=== PATIENT | female | born 1960 | race Caucasian/White ===

== ENCOUNTER 2020-06-23 08:19 | Outpatient (CLI) | payer MEDICARE, SELFPAY ==
--- NOTE | ~2020-06-23 | MM_ITS ---
EXAMINATION: MM screening hawa BI w josé antonio HISTORY: Screening mammogram, family history of breast cancer in her mother. TECHNIQUE: Craniocaudal and mediolateral oblique 3-D tomosynthesis images were obtained and synthetic 2-D images were generated. CAD analysis was submitted and interpreted. COMPARISON: 03/16/2019 BREAST PARENCHYMAL COMPOSITION: The breasts are almost entirely fatty. FINDINGS: Scattered benign-appearing calcifications are present. There is no evidence of suspicious m ass, calcification, or architectural distortion to suggest malignancy in either breast. There has bee n no suspicious interval change. IMPRESSION: 1. No mammographic evidence of malignancy. 2. Recommend routine screening mammography in one year. BI-RADS Category 2: Benign finding(s). Reviewed, dictated and finalized at location A.
== END 2020-06-23 08:20 | disposition home or self-care (01) ==
PROVIDERS: PCP Family Medicine; Visit Provider Family Medicine
DX: Z12.31 Encounter for screening mammogram for malignant neoplasm of breast (principal)
CPT/HCPCS: 77063; 77067

== ENCOUNTER 2020-12-22 07:13 | Outpatient (CLI) | payer MEDICARE, SELFPAY ==
[2020-12-22 07:25] LABS: Basophils Absolute Auto 0.08 K/mm3 (0.00-0.10); Basophils Percent Auto 0.9 % (0.0-1.0); Eosinophils Absolute Auto 0.28 K/mm3 (0.02-0.50); Hematocrit 42.5 % (35.0-49.0); Hemoglobin 14.4 g/dL (12.0-15.0); Immature Granulocyte Absolute 0.07 K/mm3 (0.00-0.00); Immature Granulocyte Percent A 0.8 % (0.0-0.0); Lymphocytes Absolute Auto 2.66 K/mm3 (1.10-4.50); Lymphocytes Percent Auto 28.5 % (18.0-42.0); Mean Corpuscular HGB Conc 33.9 g/dL (32.0-36.0); Mean Corpuscular Hemoglobin 31.6 pg (27.0-31.0); Mean Corpuscular Volume 93.2 fL (78.0-102.0); Mean Platelet Volume 8.9 fl (9.2-11.8); Monocytes Absolute Auto 0.65 K/mm3 (0.10-0.90); Neutrophils Absolute Auto 5.6 K/mm3 (1.7-7.2); Neutrophils Percent Auto 59.8 % (50.0-70.0); Platelet Count Result 198 K/mm3 (150-420); Red Blood Count 4.56 M/mm3 (4.20-5.40); Red Cell Distribution Width 12.2 % (11.6-14.4); White Blood Count 9.3 K/mm3 (4.8-10.8)
[2020-12-22 08:06] LABS: Anion Gap 9 mmol/L (8-16); Blood Urea Nitrogen 17 mg/dL (7-18); Calcium 9.2 mg/dL (8.5-10.1); Carbon Dioxide 30 mmol/L (21-32); Chloride 106 mmol/L (98-108); Cholesterol 211 mg/dL (0-200); Estimated Glomerular Filt Rate > 60; Glucose 96 mg/dL (70-99); HDL Direct 56 mg/dL (40-60); LDL Cholesterol Calculated 133 mg/dL (<130); Osmolality Calculated 301 mOsm/kg (285-295); Potassium 4.5 mmol/L (3.5-5.1); Sodium 145 mmol/L (136-145); Triglycerides 112 mg/dL (0-150)
== END 2020-12-22 07:14 | disposition home or self-care (01) ==
LOC: CHSLAB 07:15
PROVIDERS: PCP Family Medicine; Visit Provider Family Medicine
DX: I10 Essential (primary) hypertension (principal)
CPT/HCPCS: 36415; 80048; 80061; 85025

== ENCOUNTER 2021-12-17 09:17 | Outpatient (CLI) | payer MEDICARE, SELFPAY ==
[2021-12-17 09:27] LABS: Basophils Absolute Auto 0.06 K/mm3 (0.00-0.10); Basophils Percent Auto 0.8 % (0.0-1.0); Eosinophils Percent Auto 2.5 % (1.0-6.0); Hematocrit 39.9 % (35.0-49.0); Hemoglobin 13.5 g/dL (12.0-15.0); Immature Granulocyte Absolute 0.03 K/mm3 (0.00-0.00); Immature Granulocyte Percent A 0.4 % (0.0-0.0); Lymphocytes Absolute Auto 1.94 K/mm3 (1.10-4.50); Lymphocytes Percent Auto 24.7 % (18.0-42.0); Mean Corpuscular HGB Conc 33.8 g/dL (32.0-36.0); Mean Corpuscular Hemoglobin 31.8 pg (27.0-31.0); Mean Corpuscular Volume 94.1 fL (78.0-102.0); Mean Platelet Volume 9.2 fl (9.2-11.8); Monocytes Absolute Auto 0.39 K/mm3 (0.10-0.90); Neutrophils Absolute Auto 5.2 K/mm3 (1.7-7.2); Neutrophils Percent Auto 66.6 % (50.0-70.0); Platelet Count Result 185 K/mm3 (150-420); Red Blood Count 4.24 M/mm3 (4.20-5.40); Red Cell Distribution Width 12.1 % (11.6-14.4); White Blood Count 7.9 K/mm3 (4.8-10.8)
[2021-12-17 09:43] LABS: Alanine Aminotransferase 25 U/L (14-59); Albumin Level 3.9 g/dL (3.4-5.0); Alkaline Phosphatase 64 U/L (46-116); Anion Gap 2 mmol/L (8-16); Aspartate Amino Transferase 11 U/L (15-37); Bilirubin,Total 0.8 mg/dL (0.00-1.00); Blood Urea Nitrogen 18 mg/dL (7-18); Calcium 9.1 mg/dL (8.5-10.1); Carbon Dioxide 30 mmol/L (21-32); Chloride 104 mmol/L (98-108); Estimated Glomerular Filt Rate > 60; Glucose 100 mg/dL (70-99); Osmolality Calculated 283 mOsm/kg (285-295); Potassium 3.6 mmol/L (3.5-5.1); Sodium 136 mmol/L (136-145); Total Protein 7.5 g/dL (6.4-8.2)
[2021-12-17 11:31] LABS: Cholesterol 202 mg/dL (0-200); HDL Direct 49 mg/dL (40-60); LDL Cholesterol Calculated 131 mg/dL (<130); Triglycerides 111 mg/dL (0-150)
== END 2021-12-17 09:18 | disposition home or self-care (01) ==
LOC: CHSLAB 09:19
PROVIDERS: PCP Family Medicine; Visit Provider Family Medicine
DX: I10 Essential (primary) hypertension (principal); E78.5 Hyperlipidemia, unspecified
CPT/HCPCS: 36415; 80053; 80061; 85025

== ENCOUNTER 2022-12-16 07:51 | Outpatient (CLI) | payer MEDICARE, SELFPAY ==
[2022-12-16 08:39] LABS: Anion Gap 8 mmol/L (8-16); Blood Urea Nitrogen 19 mg/dL (7-18); Calcium 9.5 mg/dL (8.5-10.1); Carbon Dioxide 28 mmol/L (21-32); Chloride 102 mmol/L (98-108); Estimated Glomerular Filt Rate > 60; Glucose 97 mg/dL (70-99); Osmolality Calculated 288 mOsm/kg (285-295); Potassium 3.7 mmol/L (3.5-5.1); Sodium 138 mmol/L (136-145)
== END 2022-12-16 07:52 | disposition home or self-care (01) ==
LOC: CHSLAB 07:54
PROVIDERS: PCP Family Medicine; Visit Provider Family Medicine
DX: I10 Essential (primary) hypertension (principal)
CPT/HCPCS: 36415; 80048

== ENCOUNTER 2023-05-24 08:40 | Outpatient (CLI) | payer MEDICARE, SELFPAY ==
--- NOTE | ~2023-05-24 | MM_ITS ---
EXAMINATION: MM screening hawa BI w josé antonio HISTORY: Screening TECHNIQUE: Craniocaudal and mediolateral oblique 3-D tomosynthesis images were obtained and synthetic 2-D images were generated. CAD analysis was submitted and interpreted. COMPARISON: Comparison to multiple prior studies sequentially, with oldest reviewed study dated 03/16. BREAST PARENCHYMAL COMPOSITION: Not dense: There are scattered areas of fibroglandular density. FINDINGS: There is a new focal asymmetry in the upper outer quadrant of the right breast posteriorly, best seen on MLO view. The left breast is stable without evidence for malignancy. IMPRESSION: 1. Developing asymmetry upper outer quadrant of the right breast posteriorly. 2. Additional mammographic views and possible breast ultrasound are recommended. BI-RADS Category 0: Incomplete: Needs additional imaging evaluation. Reviewed, dictated and finalized at location A. IMPRESSION: 1. Developing asymmetry upper outer quadrant of the right breast posteriorly. 2. Additional mammographic views and possible breast ultrasound are recommended . BI-RADS Category 0: Incomplete: Needs additional imaging evaluation.
== END 2023-05-24 08:41 | disposition home or self-care (01) ==
LOC: CHSIMG 08:42
PROVIDERS: PCP Family Medicine; Visit Provider Family Medicine
DX: Z12.31 Encounter for screening mammogram for malignant neoplasm of breast (principal); R92.8 Other abnormal and inconclusive findings on diagnostic imaging of breast
CPT/HCPCS: 77063; 77067

== ENCOUNTER 2023-06-16 08:01 | Outpatient (CLI) | payer MEDICARE, SELFPAY ==
--- NOTE | ~2023-06-16 | MMUS_ITS ---
EXAMINATION: MM diagnostic hawa RT w josé antonio, US breast RT limited HISTORY: Developing asymmetry reported in the posterior upper outer quadrant of the right breast TECHNIQUE: Additional 3-D tomosynthesis images of the right breast were performed and synthetic 2-D i mages were generated. CAD analysis was submitted and interpreted. High resolution upper outer quadran t right breast ultrasound was performed. COMPARISON: 05/24/2023, 06/23/2020 bilateral screening mammogram examinations FINDINGS: MAMMOGRAPHIC FINDINGS: 5.3 x 8.4 mm circumscribed oval opacity fatty hilum, consistent with benign appearing lymph node is n oted posteriorly in the outer mid right breast. No suspicious mass or architectural distortion or malignant calcification, skin thickening or retract ion of the right breast is detected. ULTRASOUND: 10:00 8 cm from nipple: Parallel circumscribed hypoechoic 4 x 5 x 7.2 mm circumscribed solid lesion, without internal vascularity or posterior shadowing, most consistent with benign process, likely lorena gn intramammary lymph node corresponding to the mammographic finding. IMPRESSION: 1. Benign fatty 2. Routine annual mammographic screening is recommended BI-RADS Category 2: Benign finding(s). Reviewed, dictated and finalized at location A. IMPRESSION: 1. Benign fatty 2. Routine annual mammographic screening is recommended BI-RADS Category 2: Benign finding(s).
[2023-06-16 08:30] LABS: Basophils Absolute Auto 0.07 K/mm3 (0.00-0.10); Basophils Percent Auto 1.1 % (0.0-1.0); Eosinophils Absolute Auto 0.17 K/mm3 (0.02-0.50); Eosinophils Percent Auto 2.6 % (1.0-6.0); Hematocrit 40.8 % (35.0-49.0); Hemoglobin 13.5 g/dL (12.0-15.0); Immature Granulocyte Absolute 0.03 K/mm3 (0.00-0.00); Immature Granulocyte Percent A 0.5 % (0.0-0.0); Lymphocytes Absolute Auto 1.91 K/mm3 (1.10-4.50); Lymphocytes Percent Auto 28.7 % (18.0-42.0); Mean Corpuscular HGB Conc 33.1 g/dL (32-36); Mean Corpuscular Hemoglobin 31.4 pg (27.0-31.0); Mean Corpuscular Volume 94.9 fL (78.0-102.0); Mean Platelet Volume 9.5 fl (9.2-11.8); Monocytes Absolute Auto 0.35 K/mm3 (0.10-0.90); Monocytes Percent Auto 5.3 % (2.0-11.0); Neutrophils Absolute Auto 4.12 K/mm3 (1.70-7.20); Neutrophils Percent Auto 61.8 % (50.0-70.0); Platelet Count Result 189 K/mm3 (150-420); Red Cell Distribution Width 12.3 % (11.6-14.4); White Blood Count 6.7 K/mm3 (4.8-10.8)
[2023-06-16 09:02] LABS: Alanine Aminotransferase 19 U/L (14-59); Albumin Level 3.8 g/dL (3.4-5.0); Alkaline Phosphatase 66 U/L (46-116); Anion Gap 6 mmol/L (4-12); Aspartate Amino Transferase 13 U/L (15-37); Blood Urea Nitrogen 16 mg/dL (7-18); Calcium 8.8 mg/dL (8.5-10.1); Carbon Dioxide 32 mmol/L (21-32); Chloride 103 mmol/L (98-108); Cholesterol 198 mg/dL (0-200); Estimated Glomerular Filt Rate > 60; Glucose 98 mg/dL (70-99); HDL Direct 69 mg/dL (40-60); LDL Cholesterol Calculated 103 mg/dL (<130); Osmolality Calculated 293 mOsm/kg (285-295); Potassium 4.3 mmol/L (3.5-5.1); Sodium 141 mmol/L (136-145); Thyroid Stimulating Hormone 1.45 uIU/mL (0.36-3.74); Total Protein 6.9 g/dL (6.4-8.2); Triglycerides 129 mg/dL (0-150)
[2023-06-16 14:09] LABS: Creatinine Urine 110.97 mg/dL (40-278); MALB Creatinine Ratio 11.7 mg/g (0-30); Microalbumin Urine Random < 13.0 mg/L
== END 2023-06-16 08:02 | disposition home or self-care (01) ==
LOC: CHSIMG 08:06
PROVIDERS: PCP Family Medicine; Visit Provider Family Medicine
DX: R92.8 Other abnormal and inconclusive findings on diagnostic imaging of breast (principal); I10 Essential (primary) hypertension
CPT/HCPCS: 36415; 76642; 77061; 77065; 80053; 80061; 81001; 82043; 84443; 85025; G0279

== ENCOUNTER 2023-12-21 08:23 | Outpatient (CLI) | payer MEDICARE, SELFPAY ==
[2023-12-21 08:52] LABS: Basophils Absolute Auto 0.09 K/mm3 (0.00-0.10); Basophils Percent Auto 1.3 % (0.0-1.0); Eosinophils Absolute Auto 0.17 K/mm3 (0.02-0.50); Eosinophils Percent Auto 2.4 % (1.0-6.0); Hematocrit 41.3 % (35.0-49.0); Hemoglobin 13.9 g/dL (12.0-15.0); Immature Granulocyte Absolute 0.02 K/mm3 (0.00-0.00); Immature Granulocyte Percent A 0.3 % (0.0-0.0); Lymphocytes Absolute Auto 1.94 K/mm3 (1.10-4.50); Lymphocytes Percent Auto 27.7 % (18.0-42.0); MALB Creatinine Ratio 17.1 mg/g (0-30); Mean Corpuscular HGB Conc 33.7 g/dL (32-36); Mean Corpuscular Hemoglobin 30.9 pg (27.0-31.0); Mean Corpuscular Volume 91.8 fL (78.0-102.0); Mean Platelet Volume 9.5 fl (9.2-11.8); Microalbumin Urine Random < 13.0 mg/L; Monocytes Absolute Auto 0.43 K/mm3 (0.10-0.90); Monocytes Percent Auto 6.1 % (2.0-11.0); Neutrophils Absolute Auto 4.36 K/mm3 (1.70-7.20); Neutrophils Percent Auto 62.2 % (50.0-70.0); Platelet Count Result 197 K/mm3 (150-420); Red Cell Distribution Width 12.1 % (11.6-14.4)
[2023-12-21 09:16] LABS: Alanine Aminotransferase 18 U/L (14-59); Albumin Level 3.8 g/dL (3.4-5.0); Alkaline Phosphatase 75 U/L (46-116); Anion Gap 8 mmol/L (4-12); Aspartate Amino Transferase 12 U/L (15-37); Bilirubin,Total 1.1 mg/dL (0.00-1.00); Blood Urea Nitrogen 18 mg/dL (7-18); Calcium 9.5 mg/dL (8.5-10.1); Carbon Dioxide 30 mmol/L (21-32); Chloride 103 mmol/L (98-108); Cholesterol 210 mg/dL (0-200); Estimated Glomerular Filt Rate > 60; Glucose 96 mg/dL (70-99); HDL Direct 59 mg/dL (40-60); LDL Cholesterol Calculated 127 mg/dL (<130); Osmolality Calculated 293 mOsm/kg (285-295); Potassium 3.9 mmol/L (3.5-5.1); Sodium 141 mmol/L (136-145); Thyroid Stimulating Hormone 1.63 uIU/mL (0.36-3.74); Total Protein 7.1 g/dL (6.4-8.2); Triglycerides 121 mg/dL (0-150)
[2023-12-21 14:15] LABS: Bilirubin Direct 0.2 mg/dL (0-0.2)
== END 2023-12-21 08:24 | disposition home or self-care (01) ==
LOC: CHSLAB 08:25
PROVIDERS: PCP Family Medicine; Visit Provider Family Medicine
DX: I10 Essential (primary) hypertension (principal)
CPT/HCPCS: 36415; 80053; 80061; 82043; 82248; 84443; 85025

== ENCOUNTER 2024-04-13 08:09 | Emergency (ER) | payer MEDICARE, SELFPAY ==
--- NOTE | ~2024-04-13 | XR_ITS ---
EXAMINATION: XR chest 2V DATE: 04/13/2024 08:47 INDICATION: Coughing TECHNIQUE: frontal and lateral views of the chest were obtained. COMPARISON: None FINDINGS: There is some volume loss in left hemithorax with mild elevation the left hemidiaphragm. No airspace opacities, pulmonary edema, pleural effusion or pneumothorax. The cardiomediastinal silhouette is nor mal. Mild thoracic spondylosis. IMPRESSION: 1. No acute cardiopulmonary disease. Reviewed, dictated and finalized at location B. LATION CUPOLA OPERATOR
[2024-04-13 08:09] VITALS: BP 133/78; PULSE 113; RESP 16; TEMP 38.1; O2SAT 95
--- OUTSIDE RECORDS SUMMARY | 2024-04-13 08:12 | XMS_ITS | Referral Summary ---
Author Organization [facility] [employer] Address [address] [place] [address] Care Team Providers Care Air Conditioning Unit Tester Name Role Phone Reji Ferreira MD Primary Care Provider +1- [phone] Source Comments [facility],non-owned Affiliates and Associated Physician Practices is amultiple site organization consisting of ambulatory clinics and hospital sitesin [place], [place], [place] and [place]. This disclosure is being madepursuant to the Care Everywhere program and may not contain all information available regarding this patient. Last updated 17.[facility] Medications Be aware that medications may not be up to date on this document. Always verify current medications with the patient. No known medications Active Problems No known active problems Social History Tobacco Use Types Packs/Day Years Used Date Smoking Tobacco: Never Smokeless Tobacco: Never Alcohol Use Standard Drinks/Week Comments Yes 0 (1 standard drink = 0.6 oz pur e alcohol) occasional Sex and Gender Information Value Date Recorded Sex Assigned at Not on file Gender Identity Not on file Sexual Orientation Not on file Last Filed Vital Signs Vital Sign Reading Time Taken Comments Blood Pressure - - Pulse - - Temperature - - Respiratory Rate - - Oxygen Saturation - - Inhaled Oxygen Concentration - - Weight 69.6 kg (153 lb 8 oz) 09/16/2017 12:33 PM CDT Height 149.9 cm (4' 11 ) 09/16/2017 12:33 PM CDT Body Mass Index 31 09/16/2017 12:33 PM CDT Plan of Treatment Not on file Care Teams Air Conditioning Unit Tester Relationship Specialty Start Date End Date Reji Ferreira MD [address] [place] [id number] PCP - General 08/16/17
--- OUTSIDE RECORDS SUMMARY | 2024-04-13 08:12 | XMS_ITS | Patient Health Summary ---
Author Organization [facility] Address [address] [place] [address] Care Team Providers Care Computing Architect Name Role Phone Reji Ferreira MD Primary Care Provider [phone] Note from [facility],non-owned Affiliates and Associated Physician Practices is amultiple site organization consisting of ambulatory clinics and hospital sitesin [place], [place], [place] and [place]. This disclosure is being madepursuant to the Care Everywhere program and may not contain all information available regarding this patient. Last updated 17.[facility] Medications Be aware that medications may not [...] Mass Index 31 09/16/2017 12:33 PM CDT Procedures * XR LUMBAR SPINE 2 OR 3VW(Performed 09/16/2017) Performed for Chronic midline low back pain with right-sided sciatica * XR THORACIC SPINE 2VW(Performed 09/16/2017) Performed for Other chronic pain Results * XR LUMBAR SPINE 2 OR 3VW (09/16/2017 1:02 PM CDT) Anatomical Region Laterality Modality Spine Radiographic Tanesha ging 09/16/2017 1:00 PM CDT Impressions 09/16/2017 1:07 PM CDT IMPRESSION: 1. Bony fusion at the anterior aspect of the T10-T11 disc space. 2. Grade 1 anterolisthesis at L4-5. This report was electronically signed by MIKO RAMSEY MD on 09/16/2017 1:07 PM . Narrative 09/16/2017 1:07 PM CDT Exam: 1. XR THORACIC SPINE 2VW, 2. XR LUMBAR SPINE 2 OR 3VW History: thoracic spine pain , low back pain Comparison: None. Findings: Thoracic spine: There are 11 thoracic vertebral bodies bearing fully formed ribs pairs. The T12 vertebral body has hypoplastic ribs, on the left oriented horizontally and on the right downsloping. The thoracic kyphosis is normal. No fracture or subluxation is seen. There is bony fusion at the anterior aspect of the T10-T11 intervertebral disc space. The other disc spaces are normal. Lumbar spine: The lumbar lordosis is normal. The L5 vertebral body is partly sacralized. Grade 1 anterolisthesis is noted at L4-5. There is mild degenerative disc disease at L4-5 and L5-S1. 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 A metallic object projecting over the sacrum on the AP projection may represent a piercing. Procedure Note Miko Ramsey MD - 09/16/2017 Exam: 1. XR THORACIC SPINE 2VW, 2. XR LUMBAR SPINE 2 OR 3VW History: thoracic spine pain , low back pain Comparison: None. Findings: Thoracic spine: There are 11 thoracic vertebral bodies bearing fully formed ribs pairs. The T12 vertebral body has hypoplastic ribs, on the left oriented horizontally and on the right downsloping. The thoracic kyphosis is normal. No fracture or subluxation is seen. There is bony fusion at the anterior aspect of the T10-T11 intervertebral disc space. The other disc spaces are normal. Lumbar spine: The lumbar lordosis is normal. The L5 vertebral body is partly sacralized. Grade 1 anterolisthesis is noted at L4-5. There is mild degenerative disc disease at L4-5 and L5-S1. There is facetosteoarthritis in the lower lumbar spine. A metallic object projecting over the sacrumon the AP projection may represent a piercing. IMPRESSION: 1. Bony fusion at the anterior aspect of the T10-T11 disc space. 2. Grade 1 anterolisthesis at L4-5. This report was electronically signed by MIKO RAMSEY MD on09/16/2017 1:07 PM . Fartun Mchugh PA-C DIAGNOSTIC IMAG ING ORDERABLES * XR THORACIC SPINE 2VW (09/16/2017 12:27 PM CDT) Anatomical Region Laterality Modality Spine Radiographic Tanesha ging 09/16/2017 1:00 PM CDT Impressions 09/16/2017 1:07 PM CDT IMPRESSION: 1. Bony fusion at the anterior aspect of the T10-T11 disc space. 2. Grade 1 anterolisthesis at L4-5. This report was electronically signed by MIKO RAMSEY MD on 09/16/2017 1:07 PM . Narrative 09/16/2017 1:07 PM CDT Exam: 1. XR THORACIC SPINE 2VW, 2. XR LUMBAR SPINE 2 OR 3VW History: thoracic spine pain , low back pain Comparison: None. Findings: Thoracic spine: There are 11 thoracic vertebral bodies bearing fully formed ribs pairs. The T12 vertebral body has hypoplastic ribs, on the left oriented horizontally and on the right downsloping. The thoracic kyphosis is normal. No fracture or subluxation is seen. There is bony fusion at the anterior aspect of the T10-T11 intervertebral disc space. The other disc spaces are normal. Lumbar spine: The lumbar lordosis is normal. The L5 vertebral body is partly sacralized. Grade 1 anterolisthesis is noted at L4-5. There is mild degenerative disc disease at L4-5 and L5-S1. 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 A metallic object projecting over the sacrum on the AP projection may represent a piercing. Procedure Note Miko Ramsey MD - 09/16/2017 Exam: 1. XR THORACIC SPINE 2VW, 2. XR LUMBAR SPINE 2 OR 3VW History: thoracic spine pain , low back pain Comparison: None. Findings: Thoracic spine: There are 11 thoracic vertebral bodies bearing fully formed ribs pairs. The T12 vertebral body has hypoplastic ribs, on the left oriented horizontally and on the right downsloping. The thoracic kyphosis is normal. No fracture or subluxation is seen. There is bony fusion at the anterior aspect of the T10-T11 intervertebral disc space. The other disc spaces are normal. Lumbar spine: The lumbar lordosis is normal. The L5 vertebral body is partly sacralized. Grade 1 anterolisthesis is noted at L4-5. There is mild degenerative disc disease at L4-5 and L5-S1. There is facetosteoarthritis in the lower lumbar spine. A metallic object projecting over the sacrumon the AP projection may represent a piercing. IMPRESSION: 1. Bony fusion at the anterior aspect of the T10-T11 disc space. 2. Grade 1 anterolisthesis at L4-5. This report was electronically signed by MIKO RAMSEY MD on09/16/2017 1:07 PM . Fartun Mchugh PA-C DIAGNOSTIC IMAG ING ORDERABLES Care Teams Computing Architect Relationship Specialty Start Date End Date Reji Ferreira MD [address] [place] [address] PCP - General 08/16/17
--- OUTSIDE RECORDS SUMMARY | 2024-04-13 08:12 | XMS_ITS | Clinical Summary ---
Author Organization [facility] [employer] Address [address] [place] [address] Care Team Providers Care Digital Printer Name Role Phone Reji Ferreira MD Primary Care Provider [phone]- [phone] [facility],non-owned Affiliates and Associated Physician Practices is amultiple site organization consisting of ambulatory clinics and hospital sitesin [place], [place], [place] and [place]. This disclosure is being madepursuant to the Care Everywhere program and may not contain all information available regarding this patient. Last updated 17.[facility] [employer] Medications Be aware that medications may not be up to date on this document. Always verify current medications with the patient. No known medications Active Problems No known active problems Family History Medical History Relation Name Comments Cancer - Breast Mother Relation Name Status Comments Mother Social History Tobacco Use Types Packs/Day Years [...] 09/16/2017 12:33 PM CDT Plan of Treatment Health Maintenance Due Date Last Done Comments KEITH (AGES 45-75) - COL ON CA SCREENING 1959 COLON MONITORING 1959 COLONOSCOPY - COLON CA SCREENING 1959 CT COLONOGRAPHY - COLON CA SCREENING 1959 Colorectal Cancer Screening 1959 FIT - COLON CA SCREENING 1959 FLEX SIG - COLON CA SCREENING 1959 LIPID TESTING 1959 MAMMOGRAM 1959 PAP SMEAR 1959 HIV SCREENING 09/08/1974 HEPATITIS C SCREENING 09/04/1977 DTAP/TDAP/TD VACCINES (1 - Tdap) 09/08/1978 PNEUMOCOCCAL VACCINE 50+ (1 of 1 - PCV) 09/08/2009 ZOSTER VACCINE (1 of 2) 09/08/2009 SCREENING FOR DIABETES 09/16/2017 COVID-19 VACCINE ( - 2023-2 5 season) 2023 INFLUENZA VACCINE (#1) 2023 DEPRESSION SCREENING 03/07/2024 Respiratory Syncytial Virus (RSV) Vaccine Pt: or over 60 yrs (1 - 1-dose 75+ series) 09/08/2034 HEPATITIS B VACCINE Aged Out No longe r eligible based on patient's age to complete this topic HIB VACCINE Aged Out No longer eligi ble based on patient's age to complete this topic HPV VACCINE Aged Out No longer eligi ble based on patient's age to complete this topic MENINGOCOCCAL (Group B) VACCINE Aged Out No longer eligible based on patient's age to complete this topic MENINGOCOCCAL VACCINE Aged Out No kiya brian eligible based on patient's age to complete this topic PNEUMOCOCCAL VACCINE Aged Out No long er eligible based on patient's age to complete this topic Care Teams Digital Printer Relationship Specialty Start Date End Date Reji Ferreira MD [address] [place] [address] PCP - General 08/16/17
--- NOTE | 2024-04-13 08:29 | ED.URI ---
HPI - URI/Sore Throat General Chief Complaint: Upper Respiratory Infection Stated Complaint: flu symptoms. Time Seen by Provider: 04/13/24 08:29 Source: patient Mode of arrival: ambulatory Limitations: no limitations History of Present Illness HPI Narrative: 63 years old white female came to the ED by private car complaining of sore throat and coughing the last 2 days. Chest pain with coughing. Related Data Allergies Allergy/AdvReac Type Severity Reaction Status Date / Time No Known Allergies Allergy Verified 04/13/24 08:18 Review of Systems Review of Systems: All systems reviewed & are unremarkable except as noted in HPI and below PMFSH Family History Family History Other Family history of malignant neoplasm of breast in first degree relative Social History Social History Smoking status: Never smoker Exam Narrative: General appearance: Well-developed, well-nourished Skin: Normal color Head: Normocephalic, nontraumatic Eyes: Clear conjunctiva ENT: Vitaliy pharyngeal erythema Neck: Supple, nontender Chest and respiratory: Airway patent, no respiratory distress, no accessory muscle use Heart: Regular rate/rhythm Abdomen: Soft, nontender, no organomegaly, quiet bowel sounds Vascular: Normal peripheral pulses, normal capillary refill. 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, no gross motor deficit Course Course Emergency Course: upper respiratory viral infection is my concern Patient tested negative for COVID, flu and RSV Patient tested negative for strep throat chest x-ray showed no acute abnormalities Vital Signs Vital signs: Vital Signs Temperature 38.1 C H 04/13/24 08:09 Pulse Rate 113 H 04/13/24 08:09 Respiratory Rate 16 04/13/24 08:09 Blood Pressure 133/78 04/13/24 08:09 Pulse Oximetry 95 04/13/24 08:09 Oxygen Delivery Room Air 04/13/24 08:09 Temperature 37.1 C 04/13/24 09:30 Pulse Rate 99 04/13/24 09:30 Respiratory Rate 17 04/13/24 09:30 Blood Pressure 118/73 04/13/24 09:30 Pulse Oximetry 95 04/13/24 09:30 Oxygen Delivery Room Air 04/13/24 09:30 MDM - URI/Sore Throat MDM Narrative Medical decision making narrative: patient presents with upper respiratory viral infection like symptoms, Chest x-ray showed no acute abnormality Patient tested positive for influenza A Discharged on Tamiflu Differential Diagnosis Differential diagnosis: Likely other ( as above) Medical Records Attestation: I reviewed the patient's medical records. Lab Data Attestation: I reviewed the patient's lab results. Labs: Lab Results 04/13/24 Range/Units 08:10 Influenza A (RT-PCR) Pending Influenza B (RT-PCR) Pending RSV (RT-PCR) Pending SARS-CoV-2 RNA (RT-PCR) Pending Imaging Data Radiologist's impression: Impressions Chest X-Ray 04/13/24 08:49 IMPRESSION: 1. No acute cardiopulmonary disease. Critical Care Time Critical Care Time Critical Care Time: No Discharge Plan Discharge Clinical Impression: Influenza Patient Disposition: Home, Self-Care Condition: Stable Instructions: Influenza (ED) Additional Instructions: Return if symptoms are worsening , call your family physician for appointment, take Tylenol, ibuprofen as as needed for aches and pain, continue home medications. Patient Language: Sri Lankan Prescriptions: New oseltamivir [Tamiflu] 75 mg capsule 75 mg PO BID Qty: 10 0RF Follow-up/Referrals: Reji Ferreira MD [Primary Care Provider] -
[2024-04-13] MEDS: IBUPROFEN 600 MG TABLET PO (08:43)
--- OUTSIDE RECORDS SUMMARY | 2024-04-13 09:14 | XMS_ITS | Patient Health Summary ---
Author Organization [facility] Address [address] [place] [address] Care Team Providers Care Machine Shorthand Teacher Name Role Phone Reji Ferreira MD Primary Care Provider [phone]- [phone] [facility],non-owned Affiliates and Associated Physician Practices is amultiple site organization consisting of ambulatory clinics and hospital sitesin [place], [place], [place] and [place]. This disclosure is being madepursuant to the Care Everywhere program and may not contain all information available regarding this patient. Last updated 17.[facility] Medications Be aware that medications may not [...] PA-C DIAGNOSTIC IMAG ING ORDERABLES Care Teams Machine Shorthand Teacher Relationship Specialty Start Date End Date Reji Ferreira MD [address] [place] [address] PCP - General 08/16/17
--- OUTSIDE RECORDS SUMMARY | 2024-04-13 09:14 | XMS_ITS | Clinical Summary ---
Author Organization [facility] [email or web address] Address [address] [place] [address] Care Team Providers Care Nanotechnology Engineering Technician Name Role Phone Reji Ferreira MD Primary Care Provider [phone]- [phone] Source Comments [facility],non-owned Affiliates and Associated Physician Practices is amultiple site organization consisting of ambulatory clinics and hospital sitesin [place], [place], [place] and [place]. This disclosure is being madepursuant to the Care Everywhere program and may not contain all information available regarding this patient. Last updated 17.[email or web address] Medications Be aware that medications may not [...] age to complete this topic Care Teams Nanotechnology Engineering Technician Relationship Specialty Start Date End Date Reji Ferreira MD [address] [place] [address] PCP - General 08/16/17
--- OUTSIDE RECORDS SUMMARY | 2024-04-13 09:14 | XMS_ITS | Referral Summary ---
Author Organization [facility] [employer] Address [address] [place] [address] Care Team Providers Care Cancer Center Director Name Role Phone Reji Ferreira MD Primary Care Provider +1- [phone] Source Comments [facility],non-owned Affiliates and Associated Physician Practices is amultiple site organization consisting of ambulatory clinics and hospital sitesin [place], [place], [place] and [place]. This disclosure is being madepursuant to the Care Everywhere program and may not contain all information available regarding this patient. Last updated 17.[facility] Medications Be aware that medications may not [...] of Treatment Not on file Care Teams Cancer Center Director Relationship Specialty Start Date End Date Reji Ferreira MD [address] [place] [phone] PCP - General 08/16/17
[2024-04-13 09:30] VITALS: BP 118/73; PULSE 99; RESP 17; TEMP 37.1; O2SAT 95
[2024-04-13 09:43] LABS: SARS-CoV-2 RNA PCR Negative (Negative)
[2024-04-13 09:44] LABS: Influenza A QL RT-PCR Positive (Negative); Influenza B QL RT-PCR Negative (Negative); RSV RNA, RT-PCR Negative (Negative)
[2024-04-13 09:56] VITALS: BP 118/73; PULSE 99; RESP 17; TEMP 37.1; O2SAT 95
== END 2024-04-13 09:56 | disposition home or self-care (01) ==
LOC: CHSED 08:54
PROVIDERS: Emergency Provider Emergency Medicine; PCP Family Medicine
DX: J11.1 Influenza due to unidentified influenza virus with other respiratory manifestations (principal); Z20.822 Contact with and (suspected) exposure to COVID-19
CPT/HCPCS: 71046; 87637; 99283; A9270

== ENCOUNTER 2024-07-17 11:35 | Outpatient (CLI) | payer MEDICARE, SELFPAY ==
--- NOTE | ~2024-07-17 | MM_ITS ---
EXAMINATION: MM screening hawa BI w josé antonio HISTORY: Screening mammogram TECHNIQUE: Craniocaudal and mediolateral oblique 3-D tomosynthesis images were obtained and synthetic 2-D images were generated. CAD analysis was submitted and interpreted. COMPARISON: 06/16/2023, 05/24/2023, 06/23/2020, 03/16/2019 BREAST PARENCHYMAL COMPOSITION:Not Dense. The breasts are almost entirely fatty FINDINGS: No suspicious mass, calcification, or architectural distortion are identified in either zack ast to suggest malignancy. There has been no suspicious interval change. IMPRESSION: No mammographic evidence of malignancy. Recommend routine screening mammography in one year. BI-RADS Category 1: Negative Reviewed, dictated and finalized at location .
[2024-07-17 11:51] LABS: Basophils Absolute Auto 0.09 K/mm3 (0.00-0.10); Basophils Percent Auto 1.1 % (0.0-1.0); Eosinophils Absolute Auto 0.21 K/mm3 (0.02-0.50); Eosinophils Percent Auto 2.5 % (1.0-6.0); Hematocrit 42.3 % (35.0-49.0); Hemoglobin 14.1 g/dL (12.0-15.0); Immature Granulocyte Absolute 0.04 K/mm3 (0.00-0.00); Immature Granulocyte Percent A 0.5 % (0.0-0.0); Lymphocytes Absolute Auto 2.56 K/mm3 (1.10-4.50); Mean Corpuscular HGB Conc 33.3 g/dL (32-36); Mean Corpuscular Hemoglobin 30.7 pg (27.0-31.0); Mean Platelet Volume 9.5 fl (9.2-11.8); Monocytes Absolute Auto 0.45 K/mm3 (0.10-0.90); Monocytes Percent Auto 5.4 % (2.0-11.0); Neutrophils Absolute Auto 4.92 K/mm3 (1.70-7.20); Neutrophils Percent Auto 59.5 % (50.0-70.0); Platelet Count Result 215 K/mm3 (150-420); Red Cell Distribution Width 12.2 % (11.6-14.4); White Blood Count 8.3 K/mm3 (4.8-10.8)
--- OUTSIDE RECORDS SUMMARY | 2024-07-17 11:52 | XMS_ITS | Clinical Summary ---
Author Organization [facility] [employer] Address [address] [place] [address] Care Team Providers Care Licensed Esthetician Name Role Phone Reji Ferreira MD Primary Care Provider [phone]- [phone] Source Comments [facility],non-owned Affiliates and Associated Physician Practices is amultiple site organization consisting of ambulatory clinics and hospital sitesin [place], [place], [place] and [place]. This disclosure is being madepursuant to the Care Everywhere program and may not contain all information available regarding this patient. Last updated 17.[facility] [employer] Medications * Be aware that medications may not be up to date on this document. Alwaysverify current medications with the patient. No known medications Active Problems No known active problems Family History Medical History Relation Name Comments Cancer - Breast Mother Relation Name Status Comments Mother Social History Tobacco Use Types Packs/Day Years Used Date Smoking Tobacco: Never Smokeless Tobacco: Never Alcohol Use Standard Drinks/Week Comments Yes 0 (1 standard drink = 0.6 oz pur e alcohol) occasional Comments No Sex and Gender Information Value Date Recorded Sex Assigned at Not on file Legal Sex Female 11:32 AM CDT Gender Identity Not on file Sexual Orientation [...] Health Maintenance Due Date Last Done Comments COLOGUARD (AGES 45-75) - COL ON CA SCREENING 1959 COLON MONITORING 1959 COLONOSCOPY - COLON CA SCREENING 1959 CT COLONOGRAPHY - COLON CA SCREENING 1959 Colorectal Cancer Screening 1959 FIT - COLON CA SCREENING 1959 FLEX SIG - COLON CA SCREENING 1959 LIPID TESTING 1959 MAMMOGRAM 1959 HIV SCREENING 09/08/1974 HEPATITIS C SCREENING 09/04/1977 DTAP/TDAP/TD VACCINES (1 - Tdap) 09/08/1978 PNEUMOCOCCAL VACCINE 50+ (1 of 1 - PCV) 09/08/2009 ZOSTER VACCINE (1 of 2) 09/08/2009 SCREENING FOR DIABETES 09/16/2017 COVID-19 VACCINE ( - 2023-2 5 season) 2023 DEPRESSION SCREENING 03/07/2024 INFLUENZA VACCINE (Season Ended) 2024 Respiratory Syncytial Virus (RSV) Vaccine Pt: or [...] to complete this topic MENINGOCOCCAL (Group B) VACC INE SHARED DECISION-MAKING Aged Out No longer eligibl e based on patient's age to complete this topic MENINGOCOCCAL GROUPS A/C/Y/W VACCINE Aged Out No longer eligible b ased on patient's age to complete this topic Insurance [facility] Care Teams Licensed Esthetician Relationship Specialty Start Date End Date Reji Ferreira MD [address] [place] [address] PCP - General 08/16/17
[2024-07-17 12:24] LABS: Anion Gap 7 mmol/L (4-12); Blood Urea Nitrogen 20 mg/dL (7-17); Calcium 9.2 mg/dL (8.4-10.2); Carbon Dioxide 27 mmol/L (22-30); Chloride 106 mmol/L (98-107); Estimated Glomerular Filt Rate > 60; Glucose 91 mg/dL (65-110); Osmolality Calculated 292 mOsm/kg (285-295); Potassium 4.1 mmol/L (3.4-5.0); Sodium 140 mmol/L (137-145)
== END 2024-07-17 11:36 | disposition home or self-care (01) ==
PROVIDERS: PCP Family Medicine; Visit Provider Family Medicine
DX: Z12.31 Encounter for screening mammogram for malignant neoplasm of breast (principal); I10 Essential (primary) hypertension
CPT/HCPCS: 36415; 77063; 77067; 80048; 85025

== ENCOUNTER 2024-07-25 12:47 | Emergency (ER) | payer MEDICARE, SELFPAY ==
--- NOTE | ~2024-07-25 | CT_ITS ---
CTA chest PE protocol Ordering provider: Nick Hdez MD History: 63 years Female with . chest trauma/pain after push mowing 1 week ago . Comparison: None. Technique: CT angiogram chest was performed following timed intravenous injection of contrast. Thin s lice axial images and reformatted coronal images were obtained. Three dimensional reformatted images of the chest were also obtained using a [employer] workstation. . Automated exposure control and iterati ve reconstruction technique were employed. The dose-length product was 276.25 mGy-cm. 75 mL Omnipaque 350 was given IV. Findings: PULMONARY ARTERIES: No pulmonary embolus. VISUALIZED THORACIC INLET: Normal. MEDIASTINUM: Aorta/coronary arteries: Mild atheromatous disease. Heart/other: The heart is not enlarged. Lymph nodes: No mediastinal or hilar adenopathy. LUNGS: No pulmonary nodules or masses. No infiltrates or effusions. No pneumothorax. VISUALIZED UPPER ABDOMEN: Cholelithiasis. Small sliding hiatus hernia. Otherwise, the visualized uppe r abdomen is normal. MUSCULOSKELETAL: Soft tissues: The superficial soft tissues are normal. Bones: Age appropriate degenerative changes of the spine. IMPRESSION: 1. No pulmonary embolism. 2. No acute cardiopulmonary pathology. 3. Cholelithiasis. 4. Small sliding hiatus hernia. Reviewed, dictated and finalized at location A.
--- NOTE | 2024-07-25 12:49 | ED_ITS ---
HPI - Chest Pain General Chief Complaint: Extremity Injury, Upper Stated Complaint: chest wall pain Time Seen by Provider: 07/25/24 12:48 Source: patient Mode of arrival: ambulatory Limitations: no limitations History of Present Illness HPI narrative: 63-year-old female with a history was pushing a cart with her arms and chest. she developed anterior chest wall pain which is worse on coughing and deep breathing. She has been having this pain for the past 1 week. No shortness of breath. No cough or sputum production. Patient is a nonsmoker. No prior history of CAD/ pulmonary embolism. complaint: chest pain Onset (ago): week(s) ( One week) Timing of current episode: episodic Prior episodes: Yes Onset: during exertion Pain location: substernal and left chest Pain radiation: none Severity: severe Related Data Home Medications ?Medication ?Instructions ?Recorded ?Confirmed ?Last Taken ?Type amlodipine 10 mg tablet 10 mg PO DAILY 07/25/24 Unknown History famotidine 20 mg tablet 20 mg PO Q12H 07/25/24 Unknown History losartan 100 1 tablet PO DAILY 07/25/24 Unknown History mg-hydrochlorothiazide 12.5 mg tablet Allergies Allergy/AdvReac Type Severity Reaction Status Date / Time No Known Allergies Allergy Verified 04/13/24 08:18 Review of Systems 2 Review of Systems: All systems reviewed & are unremarkable except as noted in HPI and below PMFSH Past Medical History Medical History Hypertension Family History Family History Other Family history of malignant neoplasm of breast in first degree relative Social History Social History Smoking status: Never smoker Exam 2 Narrative: vitals are stable Const: General: no acute distress Orientation/consciousness: patient oriented x3 Limitations: no limitations HENMT: Head: normal to inspection Ears: external ears normal F hector/Nose/Sinus: Normal external nose present Face and sinus: normal facial exam Mouth: Yes Normal oral and palatal mucosa present Throat: posterior oropharynx normal Eyes: Conjunctivae: conjunctivae normal Pupils: Equal, round and reactive pupils present EOM: EOMs intact bilaterally Direct Ophthalmoscopy: no photophobia Neck: Neck: normal visual inspection, no lymphadenopathy and no meningeal signs Chest: Chest palpation & inspection: normal inspection of the chest Other: chest wall tenderness over the sternum and over the left ribs Resp: Effort & Inspection: normal respiratory effort Auscultation: clear to auscultation bilaterally Cardio: Rate: regular rate Rhythm: regular rhythm GI: Auscultation: normal bowel sounds Other: no tenderness/ rigidity /rebound. : General: Yes no CVA tenderness Skin: General skin exam: normal color Rashes: no rashes Wounds: no wounds Neuro: General: patient oriented x3, moves all extremities, no meningeal signs, no focal motor deficits and CN's II-XI intact bilaterally Cranial nerves: Yes Nystagmus not present Speech: normal speech Gait exam (Neuro): Normal gait present Extrem: General: normal to inspection and no clubbing, cyanosis or edema Psych: Mental Status: mental status grossly normal Affect: normal affect Attitude: cooperative Course Course Emergency Course: Chest wall pain-- patient had an unremarkable EKG. Normal D-dimer, troponin. CT of the chest did not show any acute findings. Vital Signs Vital signs: Vital Signs Temperature 36.7 C 07/25/24 12:50 Pulse Rate 74 07/25/24 12:50 Respiratory Rate 18 07/25/24 12:50 Blood Pressure 119/82 07/25/24 12:50 Pulse Oximetry 98 07/25/24 12:50 Oxygen Delivery Room Air 07/25/24 12:50 Temperature 36.7 C 07/25/24 12:50 Pulse Rate 72 07/25/24 14:43 Respiratory Rate 18 07/25/24 14:43 Blood Pressure 110/59 L 07/25/24 14:43 Pulse Oximetry 97 07/25/24 14:43 Oxygen Delivery Room Air 07/25/24 14:43 MDM - Chest Pain MDM Narrative Medical decision making narrative: Chest wall pain Differential Diagnosis Differential diagnosis: Likely fracture of rib and pneumothorax Medical Records Data Attestation: I reviewed the patient's medical records. Lab Data Attestation: I reviewed the patient's lab results. 07/25/24 13:47 07/25/24 13:47 Labs: Lab Results 07/25/24 Range/Units 13:47 WBC 9.1 (4.8-10.8) K/mm3 RBC 4.37 (4.20-5.40) M/mm3 Hgb 13.5 (12.0-15.0) g/dL Hct 40.0 (35.0-49.0) % MCV 91.5 (78.0-102.0) fL MCH 30.9 (27.0-31.0) pg MCHC 33.8 (32-36) g/dL RDW 12.0 (11.6-14.4) % Plt Count 200 (150-420) K/mm3 MPV 9.3 (9.2-11.8) fl Immature Gran % (Auto) 0.3 H (0.0-0.0) % Neut % (Auto) 71.5 H (50.0-70.0) % Lymph % (Auto) 20.5 (18.0-42.0) % [place] % (Auto) 4.9 (2.0-11.0) % Eos % (Auto) 2.0 (1.0-6.0) % Baso % (Auto) 0.8 (0.0-1.0) % Lymph # (Auto) 1.87 (1.10-4.50) K/mm3 [place] # (Auto) 0.45 (0.10-0.90) K/mm3 Eos # (Auto) 0.18 (0.02-0.50) K/mm3 Baso # (Auto) 0.07 (0.00-0.10) K/mm3 Abs Immat Gran (auto) 0.03 H (0.00-0.00) K/mm3 Absolute Neuts (auto) 6.53 (1.70-7.20) K/mm3 Absolute Nucleated RBC 0.00 (0.00-0.00) K/mm3 Nucleated RBC % 0.0 (0-0.0) % D-Dimer 0.31 (0.19-0.50) mg/L Sodium 140 (137-145) mmol/L Potassium 4.1 (3.4-5.0) mmol/L Chloride 104 (98-107) mmol/L Carbon Dioxide 29 (22-30) mmol/L Anion Gap 7 (4-12) mmol/L BUN 20 H (7-17) mg/dL Creatinine 1.04 H (0.7-1.0) mg/dL Estim Creat Clear Calc Not Reportable Estimated GFR 53 L (59 - ) Glucose 102 (65-110) mg/dL Calculated Osmolality 292 (285-295) mOsm/kg Lactic Acid 1.0 (0.4-2.0) mmol/L Calcium 9.2 (8.4-10.2) mg/dL Total Bilirubin 0.9 (0.2-1.3) mg/dL AST 25 (14-36) U/L ALT 20 (6-35) U/L Alkaline Phosphatase 74 (38-126) U/L Troponin I < 0.012 (0.000-0.034) ng/mL Total Protein 7.6 (6.3-8.2) g/dL Albumin 4.4 (3.5-5.1) g/dL ECG Data EKG #1: ECG completion date: 07/25/24 ECG completion time: 13:40 Interpretation: normal sinus rhythm. Normal axis. No ST -T-wave changes noted. Discharge Plan Discharge Clinical Impression: Chest wall pain Patient Disposition: Home Condition: Stable Instructions: Antibiotic Form, Chest Wall Pain (ED) Patient Language: Irish Prescriptions: No Action famotidine 20 mg tablet 20 mg PO Q12H amlodipine 10 mg tablet 10 mg PO DAILY losartan-hydrochlorothiazide 100-12.5 mg tablet 1 tablet PO DAILY Follow-up/Referrals: Reji Ferreira MD [Primary Care Provider] - Time of Disposition: 15:10
[2024-07-25 12:50] VITALS: BP 119/82; PULSE 74; RESP 18; TEMP 36.7; O2SAT 98
--- OUTSIDE RECORDS SUMMARY | 2024-07-25 12:50 | XMS_ITS | Clinical Summary ---
Author Organization [facility] [employer] Address [address] [place] [place] [address] Care Team Providers Care Business Data Analyst Name Role Phone Reji Ferreira MD Primary Care Provider [phone] Source Comments [facility],non-owned Affiliates and Associated Physician Practices is amultiple site organization consisting of ambulatory clinics and hospital sitesin [place], [place], [place] and [place]. This disclosure is being madepursuant to the Care Everywhere program and may not contain all information available regarding this patient. Last updated 17.[facility] [employer] Medications * Be aware that medications may [...] patient's age to complete this topic Insurance [facility] Care Teams Business Data Analyst Relationship Specialty Start Date End Date Reji Ferreira MD [address] [place] [address] PCP - General 08/16/17
--- NOTE | 2024-07-25 13:28 | ECG_ITS ---
Test Date: 2024-07-25 13:40:14 Measurements Intervals [place] Rate: 75 P: 67 IN: 173 QRS: 83 QRSD: 84 T: 76 QT: 354 QTc: 396 Interpretive Statements SINUS RHYTHM NORMAL ECG No previous ECG available for comparison Electronically Signed On 07-25-2024 15:17:49 CDT by Brenden Yip M.D.
[2024-07-25] MEDS: KETOROLAC 30 MG/ML VIAL (*BKC) IM (13:36)
[2024-07-25 13:51] LABS: Basophils Absolute Auto 0.07 K/mm3 (0.00-0.10); Basophils Percent Auto 0.8 % (0.0-1.0); Eosinophils Absolute Auto 0.18 K/mm3 (0.02-0.50); Hemoglobin 13.5 g/dL (12.0-15.0); Immature Granulocyte Absolute 0.03 K/mm3 (0.00-0.00); Immature Granulocyte Percent A 0.3 % (0.0-0.0); Lymphocytes Absolute Auto 1.87 K/mm3 (1.10-4.50); Lymphocytes Percent Auto 20.5 % (18.0-42.0); Mean Corpuscular HGB Conc 33.8 g/dL (32-36); Mean Corpuscular Hemoglobin 30.9 pg (27.0-31.0); Mean Corpuscular Volume 91.5 fL (78.0-102.0); Mean Platelet Volume 9.3 fl (9.2-11.8); Monocytes Absolute Auto 0.45 K/mm3 (0.10-0.90); Monocytes Percent Auto 4.9 % (2.0-11.0); Neutrophils Absolute Auto 6.53 K/mm3 (1.70-7.20); Neutrophils Percent Auto 71.5 % (50.0-70.0); Platelet Count Result 200 K/mm3 (150-420); Red Blood Count 4.37 M/mm3 (4.20-5.40); White Blood Count 9.1 K/mm3 (4.8-10.8)
--- OUTSIDE RECORDS SUMMARY | 2024-07-25 13:57 | XMS_ITS | Clinical Summary ---
Author Organization [facility] [employer] Address [address] [place] [address] Care Team Providers Care Scientific Affairs Manager Name Role Phone Reji Ferreira MD Primary Care Provider [phone]- [phone] Source Comments [facility],non-owned Affiliates and Associated Physician Practices is amultiple site organization consisting of ambulatory clinics and hospital sitesin [place], [place], [place] and [place]. This disclosure is being madepursuant to the Care Everywhere program and may not contain all information available regarding this patient. Last updated 17.[facility] [employer] Medications * Be aware that medications may [...] patient's age to complete this topic Insurance [facility] Care Teams Scientific Affairs Manager Relationship Specialty Start Date End Date Reji Ferreira MD [address] [place] [address] PCP - General 08/16/17
[2024-07-25 14:02] LABS: D Dimer 0.31 mg/L (0.19-0.50)
[2024-07-25 14:04] LABS: Alanine Aminotransferase 20 U/L (6-35); Albumin Level 4.4 g/dL (3.5-5.1); Alkaline Phosphatase 74 U/L (38-126); Anion Gap 7 mmol/L (4-12); Aspartate Amino Transferase 25 U/L (14-36); Bilirubin,Total 0.9 mg/dL (0.2-1.3); Blood Urea Nitrogen 20 mg/dL (7-17); Calcium 9.2 mg/dL (8.4-10.2); Carbon Dioxide 29 mmol/L (22-30); Chloride 104 mmol/L (98-107); Estimated Glomerular Filt Rate 53; Glucose 102 mg/dL (65-110); Osmolality Calculated 292 mOsm/kg (285-295); Potassium 4.1 mmol/L (3.4-5.0); Sodium 140 mmol/L (137-145); Total Protein 7.6 g/dL (6.3-8.2)
[2024-07-25] MEDS: LACTATED RINGERS 500 ML 999 ML IV CONT (14:14)
[2024-07-25 14:15] LABS: Troponin I < 0.012 ng/mL (0.000-0.034)
[2024-07-25 14:43] VITALS: BP 110/59; PULSE 72; RESP 18; O2SAT 97
[2024-07-25 15:18] VITALS: BP 117/68; PULSE 70; RESP 18; TEMP 36.5; O2SAT 97
== END 2024-07-25 15:18 | disposition home or self-care (01) ==
PROVIDERS: Emergency Provider Internal Medicine Critical Care Medicine; PCP Family Medicine
DX: R07.89 Other chest pain (principal); I10 Essential (primary) hypertension
CPT/HCPCS: 36415; 71275; 80053; 83605; 84484; 85025; 85380; 93005; 96360; 96372; 99283; J1885; J7120; Q9967

== ENCOUNTER 2024-12-26 07:44 | Outpatient (CLI) | payer MEDICARE, SELFPAY ==
--- OUTSIDE RECORDS SUMMARY | 2024-12-26 07:49 | XMS_ITS | Clinical Summary ---
Author Organization [facility] [employer] Address [address] [place] [address] Care Team Providers Care Charge Aide Name Role Phone Reji Ferreira MD Primary Care Provider [phone]- [phone] Source Comments [facility],non-owned Affiliates and Associated Physician Practices is amultiple site organization consisting of ambulatory clinics and hospital sitesin [place], [place], [place] and [place]. This disclosure is being madepursuant to the Care Everywhere program and may not contain all information available regarding this patient. Last updated 17.[facility] [employer] Medications * Be aware that medications may [...] 12:33 PM CDT Height 149.9 cm (4' 11) 09/16/2017 12:33 PM CDT Body Mass Index 31 09/16/2017 12:33 PM CDT Plan of Treatment Health Maintenance Due Date Last Done Comments BONE DENSITY TESTING 1960 COLOGUARD (AGES 45-75) - COL ON CA [...] of 2) 09/08/2009 SCREENING FOR DIABETES 09/16/2017 DEPRESSION SCREENING 03/07/2024 COVID-19 VACCINE (1 - 2023-2 5 season) 2024 INFLUENZA VACCINE (#1) 2024 Respiratory Syncytial Virus (RSV) Vaccine Pt: [...] age to complete this topic Insurance [facility] Care Teams Charge Aide Relationship Specialty Start Date End Date Reji Ferreira MD [address] [place] [address] PCP - General 08/16/17
[2024-12-26 07:59] LABS: Hematocrit 38.5 % (35.0-42.0); Hemoglobin 13.1 g/dL (11.7-13.8); Mean Corpuscular HGB Conc 34.0 g/dL (32-36); Mean Corpuscular Hemoglobin 31.1 pg (27.0-31.0); Mean Corpuscular Volume 91.4 fL (78.0-102.0); Platelet Count Result 174 K/mm3 (150-420); Red Blood Count 4.21 M/mm3 (4.20-5.40); White Blood Count 7.3 K/mm3 (4.8-10.8)
[2024-12-26 08:00] LABS: Add Urine Microscopic? YES; Appearance Urine Clear (Clear); Glucose Urine UA Negative (Negative); Leukocyte Esterase Ur 2+ (Negative); Nitrate Urine Negative (Negative); Specific Grav Ur 1.025 (1.010-1.020)
[2024-12-26 08:14] LABS: MALB Creatinine Ratio 6.2 mg/g (0-30)
[2024-12-26 08:41] LABS: Alanine Aminotransferase 14 U/L (6-35); Albumin Level 4.4 g/dL (3.5-5.1); Alkaline Phosphatase 65 U/L (38-126); Anion Gap 8 mmol/L (4-12); Aspartate Amino Transferase 19 U/L (14-36); Bilirubin,Total 1.1 mg/dL (0.2-1.3); Blood Urea Nitrogen 20 mg/dL (7-17); Calcium 9.7 mg/dL (8.4-10.2); Carbon Dioxide 31 mmol/L (22-30); Chloride 104 mmol/L (98-107); Cholesterol 213 mg/dL (0-200); Estimated Glomerular Filt Rate 54; Glucose 99 mg/dL (65-110); HDL Direct 60 mg/dL; Osmolality Calculated 298 mOsm/kg (285-295); Potassium 4.2 mmol/L (3.4-5.0); Sodium 143 mmol/L (137-145); Total Protein 7.6 g/dL (6.3-8.2); Triglycerides 131 mg/dL (<150)
[2024-12-26 09:10] LABS: Thyroid Stimulating Hormone 1.620 uIU/mL (0.465-4.680)
== END 2024-12-26 07:45 | disposition home or self-care (01) ==
LOC: CHSLAB 07:46
PROVIDERS: PCP Family Medicine; Visit Provider Family Medicine
DX: I10 Essential (primary) hypertension (principal)
CPT/HCPCS: 36415; 80053; 80061; 81001; 82043; 84443; 85027